=== PATIENT | female | born 1995 | race Two or more races ===

== ENCOUNTER 2025-08-14 09:24 | Outpatient (AMB) | payer BC, SELFPAY ==
[2025-08-14 09:36] VITALS: BP 119/68; PULSE 68; RESP 18; TEMP 36.7; O2SAT 98; BMI 28.8
--- NOTE | 2025-08-14 09:36 | OBCLNT_ITS ---
Vital Signs 08/14/25 09:36 Height 1.6 m Height Method Measured Weight 73.709 kg Weight Measurement Method Standing Scale BMI 28.8 BP 119/68 Blood Pressure Source Automatic Cuff Blood Pressure Location Right Upper Arm Position Sitting Respiration 18 Pulse 68 Pulse Source Monitor Temp 98.1 F Temp Source Temporal Artery Scan Pulse Oximetry (%) 98 Oxygen Delivery Method Room Air Allergies/Home Meds Allergies & Medications Allergies No Known Allergies Allergy (Verified 07/17/22 00:25) Intake Visit Data Collection New Patient or Established: New Patient not seen in past 3 years at [facility] (considered New) Reason for Visit:: OBI Do You Feel Safe at Home: Yes Authorities Contacted: N/A PCP or OBGYN visit in last 3 months: Yes Hx Now: Yes Are you currently on any form of Control: No Last menstrual period: 05/16/25 Pain Present Currently: No Smoking Status Smoking Status: Never smoker Questionnaires Covid-19 Vaccine Questionnaire Has patient been vacinated for Covid-19 Have you been vacinated for Covid-19: Yes Social History Tobacco History Smoking Status: Never smoker Domestic Abuse History Do You Feel Safe at Home: Yes History of Present Illness HPI Narrative The patient is a 30-year-old G1, P0 presents with the father the baby for a new OB appointment. 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 She thinks her last menstrual period might have been May 16, 2025 which would make her about 12-1/2 weeks with a due date of 02/21/2025. Patient states it took a while for test to be positive so she is unsure of her dating. OB Ultrasound Indication Indication: Size, dates and viability OB Ultrasound Ultrasound technique: transvaginal Gestational sac assessment: Presence, location, size, shape: Live intrauterine with a crown-rump length of 1.74 cm. Corresponding to a gestational age of 8 and 1 sevenths weeks. An EDC of 03/25/2026. Cardiac activity is noted at 160 bpm. [employer]: Past Medical History Additional Operations/Hospitalizations (year & reason): The patient denies any past surgical history. Other Relevant History: Patient denies any chronic medical problems including asthma diabetes or hypertension. OB Initial Visit OB Flowsheet OB Flowsheet Initial Weight: Not Recorded Date -?-?-?-?-?-?-?-?-?-?-?-?- EGA Weight BP Alb Glu CTX Pres Fundal ht FHR Mov Dilation Station Effacement Hx Notes Visit Note 08/14/25 -?-?-?-?-?-?-?-?-?-?-?-?- 8w 1d 73.709 kg 119/68 8 160 New OB appointment. Labs, NIPT, and official ultrasound ordered. EDC 03/25/2025 not consistent with LMP of 05/16/2025. Menstrual History Menstrual reliability: definite Menstrual regularity: irregular Monthly: No Age at menarche: 10 On control pills at conception: Yes Date of positive home test: 07/22/25 Associated symptoms (LMP): Reports amenorrhea and nausea OB History : 1 Para: 0 Hx # Pregnancies: 0 Hx Total # of Abortions (Spontaneous & Elective): 0 # of Living Children: 0 Infection History & Risk Evaluation History of STDs: none HIV risk evaluation: low risk Hepatitis B risk evaluation: low risk Patient or partner has history of Genital Herpes: No Genetic Screening & History Symptoms since LMP: NAUSEA Genetic Screening/Teratology Counseling - Includes patient, baby's father, or anyone in either family with: 1. Patient's age 35 years or older as of estimated date of delivery: No 2. Thalassemia (Wolof, Honduran, Mediterranean, or Background); MCV less than 80: No 3. Neural Tube Defect (Meningomyelocele, Spina Bifida, or Anencephaly): No 4. Congenital Heart Defect: No 5. Down Syndrome: No 6. Nehemias-Sachs (Ashkenazi Baptism, Cajun, Burkinan Ghanaian): No 7. Alan Disease (Ashkenazi Baptism): No 8. Familial Dysautonomia (Ashkenazi Baptism): No 9. Sickle Cell Disease or Trait (): No 10. Hemophilia or other blood disorders: No 11. Muscular Dystrophy: No 12. Cystic Fibrosis: No 13. Danica's Chorea: No 14. Mental Retardation/Autism: No 15. Other inherited genetic or chromosomal disorder: No 16. Maternal Metabolic Disorder (EG,TYPE 1 Diabetes, PKU): No 17. Patient or baby's father had a child with defects not listed above: No 18. Recurrent loss or a stillbirth: No 19. Medications (including supplements, vitamins, herbs or otc rafy gs)/illicit/recreational drugs/alcohol since last menstrual period: No 20. Any other: No Infection History 1. Live with someone with TB or exposed to TB: No 2. Rash or viral illness since last menstrual period: No 3. Hepatitis B,C: No Other (see comments) Source: [employer] Review of Systems Gastrointestinal Gastrointestinal: Reports nausea Genitourinary Genitourinary: Reports amenorrhea Exam General Limitations: no limitations General Appearance: alert, in no apparent distress, comfortable, cooperative, healthy appearing and well groomed Neck Neck exam: Present normal inspection, full ROM and trachea midline Chest Chest inspection: Present normal inspection and symmetric chest wall rise Resp Respiratory exam: Present normal lung sounds bilaterally Card Cardiovascular exam: Present regular rate, normal rhythm and normal heart sounds Abdominal Abdominal exam: Present soft and normal bowel sounds Psych Psychiatric exam: Present normal affect and normal mood Skin Skin exam: Present warm, dry, intact and normal color Office Procedures OBC Clinic LOC & Office Proc's Nursing/Assessment Patient Status: Initial/New Patient OB Clinic Nursing Assessment: Medication Reconciliation, Update PMH in EMR and Vital Signs OB Clinic Coordination of Care: Complex Care and Chronic Disease 1-5, Consent,records obtained, informed consent and Lab and Imaging orders New Patient Charge New Patient Point Assignment: [id number] New Patient Point Charge: THERMOCOUPLE TESTER Level 2 (3608-7055) Assessment & Plan Diagnosis / Problem List (1) : Status: Acute Qualifiers: Weeks of gestation: 8 weeks Qualified Code(s): Z3A.08 - 8 weeks gestation of Plan: New OB information given. All questions answered. Patient desires NIPT and t his will be drawn in about 2 weeks with her labs. Patient is a little early to draw her NIPT today. She will follow-up in 4 weeks. Right now we are going with a due date of 03/25/2026. Additional Plan Follow Up: 4 Weeks
== END 2025-08-14 10:35 | disposition home or self-care (01) ==
LOC: HODSOBC 09:24
PROVIDERS: PCP Family Medicine; Referring Provider Family Medicine; Supervising Provider Obstetrics & Gynecology; Visit Provider Obstetrics & Gynecology
DX: Z34.01 Encounter for supervision of normal first pregnancy, first trimester (principal); Z3A.08 8 weeks gestation of pregnancy
CPT/HCPCS: 99202; G0463

== ENCOUNTER 2025-09-06 08:53 | Outpatient (AMB) | payer BC, SELFPAY ==
[2025-09-06 09:25] VITALS: BP 105/67; PULSE 65; RESP 14; TEMP 36.6; O2SAT 99; BMI 29.1
--- NOTE | 2025-09-06 09:25 | OBCLNT_ITS ---
Vital Signs 09/06/25 09:25 Height 1.6 m Height Method Stated Weight 74.616 kg Weight Measurement Method Standing Scale BMI 29.1 BP 105/67 Blood Pressure Source Automatic Cuff Blood Pressure Location Left Upper Arm Position Sitting Respiration 14 Pulse 65 Pulse Source Monitor Temp 97.8 F Temp Source Oral Pulse Oximetry (%) 99 Oxygen Delivery Method Room Air Allergies/Home Meds Allergies & Medications Allergies No Known Allergies Allergy (Verified 09/06/25 09:41) Intake Visit Data Collection New Patient or Established: Established Patient (seen at [facility] within 3 years) Reason for Visit:: CARE Seen by Clinical Staff ONLY (RN/MA): No Lap Winder Required: No Do You Feel Safe at Home: Yes Authorities Contacted: N/A PCP or OBGYN visit in last 3 months: Yes Hx Now: Yes Are you currently on any form of Control: No Pain Present Currently: No Pain Scale Used: Palafox-Pickard/Numerical Pain scale:: 0 Smoking Status Smoking Status: Never smoker Questionnaires Covid-19 Vaccine Questionnaire Has patient been vacinated for Covid-19 Have you been vacinated for Covid-19: Yes PHQ-9 PHQ-2 Over the last 2 weeks, how often have you been bothered by any of the following problems? 1. Little interest or pleasure in doing things: not at all 2. Feeling down, depressed, or hopeless: not at all Total score: 0 PHQ-9 3. Trouble falling or staying asleep, or sleeping too much: Not at all 4. Feeling tired or having little energy: Not at all 5. Poor appetite or overeating: Not at all 6. Feeling bad about yourself - or that you are a failure or have let yourself or your family down: Not at all 7. Trouble concentrating on things, such as reading the newspaper or watching television: Not at all 8. Moving or speaking so slowly that other people could have noticed? - Or the opposite - being so fidgety or restless that you have been moving around a lot more than usual: not at all 9. Thoughts that you would be better off or of hurting yourself in some wa y: Not at all Total score: 0 Source: Developed by Drs. Vikram Biggs, Sita Astorga, Rafael Roca and colleagues, with an educational raza from [employer]. Depression screen completed yes Social History Tobacco History Smoking Status: Never smoker Domestic Abuse History Do You Feel Safe at Home: Yes DEEP TISSUE MASSAGE THERAPIST: Past Medical History Past Medical History: No Hx Renal Disease, No Hx Diabetes Mellitus Type 1 and No Hx Diabetes Mellitus Type 2 Care OB Visit Log OB Flowsheet Initial Weight: Not Recorded Date -?-?-?-?-?-?-?-?-?-?-?-?- EGA Weight BP Alb Glu CTX Pres Fundal ht FHR Mov Dilation Station Effacement Hx Notes Visit Note 08/14/25 -?-?-?-?-?-?-?-?-?-?-?-?- 8w 1d 73.709 kg 119/68 8 160 New OB appointment. Labs, NIPT, and official ultrasound ordered. EDC 03/25/2025 not consistent with LMP of 05/16/2025. 09/06/25 -?-?-?-?-?-?-?-?-?-?-?-?- 11w 3d 74.616 kg 105/67 12 134 Bleeding or pressu re. labs reviewed with patient. Gender in an envelope. Normal NIPT. ABISAI Calculator Estimated Delivery Date Method Current WG Current Estimate 03/25/26 Ultrasound #1 11w 4d Other Estimates 03/24/26 LMP (Uncertain) 11w 5d Expected Delivery Route/Plan 30-year-old -0-1-0 Anticipate Specific Issue/Plans No significant past medical history labs: A positive/antibody negative/rubella immune/RPR nonreactive /HIV negative/hepatitis B surface antigen negative/hepatitis C negative/GC negative/chlamydia negative/hemoglobin 12.6/hematocrit 38.6/urine culture negative/SMA and CF not resulted /NIPT 46 XY/ Notes Visit Date: 09/06/25 Last Updated by: Radha Jang (OB Clinic)MD Reviewed normal labs and NIPT. Office Procedures OBC Clinic LOC & Office Proc's Nursing/Assessment Patient Status: Established Patient OB Clinic Nursing Assessment: Medication Reconciliation, Update PMH in EMR and Vital Signs OB Clinic Coordination of Care: Complex Care and Chronic Disease 1-5, Consent,records obtained, informed consent, Education Simp Pt/Fam, Lab and Imaging orders, Results/Orders obtained and Staff clarify orders Special Needs: Heart tones Established Patient Charge Established Patient Point Assignment: 135 Established Patient Point Charge: EP Level 4 (120-155) Assessment & Plan Diagnosis / Problem List (1) : Status: Acute Qualifiers: Weeks of gestation: 13 weeks Qualified Code(s): Z3A.13 - 13 weeks gestation of Additional Plan Follow Up: 4 Weeks
== END 2025-09-06 10:19 | disposition home or self-care (01) ==
LOC: HODSOBC 08:53
PROVIDERS: Supervising Provider Obstetrics & Gynecology; Visit Provider Obstetrics & Gynecology
DX: Z34.81 Encounter for supervision of other normal pregnancy, first trimester (principal); Z3A.11 11 weeks gestation of pregnancy
CPT/HCPCS: 99214; G0463

== ENCOUNTER → 2025-09-06 | Outpatient (CLI) | payer BC, SELFPAY ==
--- NOTE | 2025-09-06 15:05 | XR_ITS ---
Examination: Complete OB ultrasound, less than 14 weeks, transabdominal Date and time of exam: September 06, 2025, 1509 hours INDICATIONS: Unknown size and dates Technique: Obstetrical ultrasound images less than 14 weeks performed via transabdominal imaging Findings: A normal shaped single intrauterine gestation is present in the uterus. CRL 5.7 cm corresponds to 12 weeks 2 days gestational age Cardiac motion 164 bpm Ultrasonographic survey of visible and placental structures unremarkable. Amniotic fluid volume appears appropriate for this estimated gestational age. Right ovary 3.3 cm arterial flow Left ovary 3.8 cm arterial flow IMPRESSION: Viable intrauterine gestation 12 weeks 2 days.
== END | disposition home or self-care (01) ==
PROVIDERS: PCP Family Medicine; Referring Provider Obstetrics & Gynecology; Visit Provider Obstetrics & Gynecology
DX: Z34.90 Encounter for supervision of normal pregnancy, unspecified, unspecified trimester (principal); Z3A.12 12 weeks gestation of pregnancy
CPT/HCPCS: 76801

== ENCOUNTER 2025-10-08 10:59 | Outpatient (AMB) | payer BC, SELFPAY ==
[2025-10-08 11:10] VITALS: BP 106/67; PULSE 58; RESP 18; TEMP 36.3; O2SAT 99; BMI 30.2
--- NOTE | 2025-10-08 11:10 | AMB.OBPNC ---
Vital Signs 10/08/25 11:10 Height 1.6 m Height Method Stated Weight 77.281 kg Weight Measurement Method Standing Scale BMI 30.2 BP 106/67 Blood Pressure Source Automatic Cuff Blood Pressure Location Right Upper Arm Position Sitting Respiration 18 Pulse 58 L Pulse Source Monitor Temp 97.4 F Temp Source Temporal Artery Scan Pulse Oximetry (%) 99 Oxygen Delivery Method Room Air Allergies/Home Meds Allergies & Medications Allergies No Known Allergies Allergy (Verified 11/05/25 11:11) Medication Reconciliation vitamins-iron fumarate 66 mg iron-folic acid 1 mg tablet tab PO 11/05/25 [History Confirmed 11/05/25] Immunizations Immunizations Flu Vaccine in the Last 12 Months: No Flu Vaccine Exclusion Criteria: Refused by Patient Care OB Visit Log OB Flowsheet Initial Weight: Not Recorded Date <del>?</del> EGA Weight BP Alb Glu CTX Pres Fundal ht FHR Mov Dilation Station Effacement Hx Notes Visit Note 08/14/25 <del>?</del> 8w 2d 73.709 kg 119/68 8 160 New OB appointment. Labs, NIPT, and official ultrasound ordered. EDC 03/25/2025 not consistent with LMP of 05/16/2025. 09/06/25 <del>?</del> 11w 4d 74.616 kg 105/67 12 134 Bleeding or pressure. labs reviewed with patient. Gender in an envelope. Normal NIPT. ABISAI Calculator Estimated Delivery Date Method Current WG Current Estimate 03/24/26 LMP (Uncertain) 21w 3d Other Estimates 03/25/26 Ultrasound #1 21w 2d 03/19/26 Ultrasound #2 22w 1d Expected Delivery Route/Plan 30-year-old -0-1-0 Anticipate Specific Issue/Plans No significant past medical history labs: A positive/antibody negative/rubella immune/RPR nonreactive /HIV negative/hepatitis B surface antigen negative/hepatitis C negative/GC negative/chlamydia negative/hemoglobin 12.6/hematocrit 38.6/urine culture negative/SMA and CF not resulted /NIPT 46 XY/ Notes Visit Date: 09/06/25 Last Updated by: Radha Jang (OB Clinic)MD Reviewed normal labs and NIPT. Office Procedures OBC Clinic LOC & Office Proc's Nursing/Assessment Patient Status: Established Patient OB Clinic Nursing Assessment: Medication Reconciliation, Update PMH in EMR and Vital Signs OB Clinic Coordination of Care: Complex Care and Chronic Disease 1-5, Education Complex Pt/Fam, Consent,records obtained, informed consent, Lab and Imaging orders, Results/Orders obtained and Staff clarify orders Special Needs: Heart tones Established Patient Charge Established Patient Point Assignment: 140 Established Patient Point Charge: EP Level 4 (120-155) Assessment & Plan Diagnosis / Problem List (1) Supervision of high risk , unspecified, second trimester: Status: Acute
== END 2025-10-08 11:38 | disposition home or self-care (01) ==
LOC: HODSOBC 10:59
PROVIDERS: Supervising Provider Obstetrics & Gynecology; Visit Provider Obstetrics & Gynecology
DX: O09.92 Supervision of high risk pregnancy, unspecified, second trimester (principal); Z3A.21 21 weeks gestation of pregnancy
CPT/HCPCS: 99214; G0463

== ENCOUNTER 2025-11-05 10:53 | Outpatient (AMB) | payer BC, SELFPAY ==
--- NOTE | 2025-11-05 11:02 | OBCLNT_ITS ---
Vital Signs 11/05/25 11:03 Height 1.6 m Height Method Stated Weight 78.982 kg Weight Measurement Method Standing Scale BMI 30.8 BP 108/66 Blood Pressure Source Automatic Cuff Blood Pressure Location Left Upper Arm Position Sitting Respiration 14 Pulse 60 Pulse Source Monitor Temp 97.7 F Temp Source Oral Pulse Oximetry (%) 99 Oxygen Delivery Method Room Air Allergies/Home Meds Allergies & Medications Allergies No Known Allergies Allergy (Verified 11/05/25 11:11) Medication Reconciliation vitamins-iron fumarate 66 mg iron-folic acid 1 mg tablet tab PO 11/05/25 [History Confirmed 11/05/25] Immunizations Immunizations Flu Vaccine in the Last 12 Months: No Flu Vaccine Exclusion Criteria: Refused by Patient Care OB Visit Log OB Flowsheet Initial Weight: Not Recorded Date -?-?-?-?-?-?-?-?-?-?-?-?- EGA Weight BP Alb Glu CTX Pres Fundal ht FHR Mov Dilation Station Effacement Hx Notes Visit Note 08/14/25 -?-?-?-?-?-?-?-?-?-?-?-?- 8w 2d 73.709 kg 119/68 8 160 New OB appointment. Labs, NIPT, and official ultrasound ordered. EDC 03/25/2025 not consistent with LMP of 05/16/2025. 09/06/25 -?-?-?-?-?-?-?-?-?-?-?-?- 11w 4d 74.616 kg 105/67 12 134 Bleeding or pressu re. labs reviewed with patient. Gender in an envelope. Normal NIPT. 11/05/25 -?-?-?-?-?-?-?-?-?-?-?-?- 20w 1d 78.982 kg 108/66 absent unknown 21 132 active - She reports feeling well overall with progressing smoothly. - She denies nausea, vomiting, cramping, or spotting. - She notes weight gain and feeling tigh ter in her pants, which she attributes to the baby growing. - She continues taking her nova mins as prescribed. - She is currently working at [employer] d took an early lunch for her appointment. - She is pending her maternal medi cine appointment for anatomy ultrasound with Dr. Fareston, whose office has not yet called to schedule. - Continue vitamins - Glucose tolerance test (diabetes screbecka jennings) to be completed approximately one day before next appointment at 24 weeks - Maternal medicine consultation w ashli Gomez for anatomy ultrasound (referral already sent, patient to wait for office contact) - Follow up in 4 weeks ABISAI Calculator Estimated Delivery Date Method Current WG Current Estimate 03/24/26 LMP (Uncertain) 22w 1d Other Estimates 03/25/26 Ultrasound #1 22w 0d 03/19/26 Ultrasound #2 22w 6d Expected Delivery Route/Plan 30-year-old -0-1-0 Anticipate Specific Issue/Plans No significant past medical history labs: A positive/antibody negative/rubella immune/RPR nonreactive /HIV negative/hepatitis B surface antigen negative/hepatitis C negative/GC negative/chlamydia negative/hemoglobin 12.6/hematocrit 38.6/urine culture negative/SMA and CF not resulted /NIPT 46 XY/ Notes Visit Date: 09/06/25 Last Updated by: Radha Jang (OB Clinic)MD Reviewed normal labs and NIPT. Office Procedures OBC Clinic LOC & Office Proc's Nursing/Assessment Patient Status: Established Patient OB Clinic Nursing Assessment: Medication Reconciliation, Update PMH in EMR and Vital Signs OB Clinic Coordination of Care: Complex Care and Chronic Disease 1-5, Cons ent,records obtained, informed consent, Education Simp Pt/Fam, 1 Ins Authorization, Lab and Imaging orders, Results/Orders obtained and Staff clarify orders Special Needs: Heart tones Established Patient Charge Established Patient Point Assignment: 150 Established Patient Point Charge: EP Level 4 (120-155) Assessment & Plan Diagnosis / Problem List (1) Supervision of high risk , unspecified, second trimester: Status: Acute Plan Problem List - Assessment 20-week and 1-day intrauterine in a patient with negative AFP screening results for neural tube defects including spina bifida. Patient reports normal progression with appropriate weight gain and heart rate of 132 bpm within normal limits. No concerning symptoms of nausea, vomiting, cramping, or spotting reported. Pending maternal- medicine consultation for anatomy ultrasound. Plan - Continue vitamins - Glucose tolerance test (diabetes screening) to be completed approximately one day before next appointment at 24 weeks - Maternal medicine consultation with Dr. Ren for anatomy ultrasound (referral already sent, patient to wait for office contact) - Follow up in 4 weeks 1. Progress Reviewed gestational age (20 weeks 1 day), growth, and heart rate (132 bpm, normal). Planned frequent visits (every 4 weeks). 2. Instructed patient to monitor movements and report decreases immediately. 3. Testing Counseled on routine third-trimester labs per guidelines (glucose screening ordered for 24 weeks). Discussed potential need for ultrasound or monitoring based on risk factors (anatomy ultrasound pending with Dr. Ren). 4. Preeclampsia Precaution Educated on preeclampsia signs: severe headache, vision changes, right upper quadrant pain, sudden swelling. Advised urgent reporting of symptoms and discussed blood pressure monitoring if high risk. 5. Labor Precautions Reviewed labor signs: regular contractions, pelvic pressure, back pain, bleeding, or fluid leakage. Instructed to seek immediate care for these symptoms. 6. Lifestyle and Delivery Preparation Reinforced vitamins, nutrition, and safe activity. Discussed plan, pain management, and . Advised on labor preparation (e.g., hospital bag) and expectations. 7. Psychosocial Support Assessed emotional well-being and offered resources for mental health or parenting support.
[2025-11-05 11:03] VITALS: BP 108/66; PULSE 60; RESP 14; TEMP 36.5; O2SAT 99; BMI 30.8
== END 2025-11-05 11:39 | disposition home or self-care (01) ==
LOC: HODSOBC 10:53
PROVIDERS: Supervising Provider Obstetrics & Gynecology; Visit Provider Obstetrics & Gynecology
DX: O09.92 Supervision of high risk pregnancy, unspecified, second trimester (principal); Z3A.20 20 weeks gestation of pregnancy
CPT/HCPCS: 99214; G0463